=== PATIENT | female | born 1980 | race Caucasian/White ===

== ENCOUNTER → 2021-01-23 17:40 | Outpatient (CLI) | payer OTHER, SELFPAY ==
[2021-01-23 20:51] LABS: Urine N gonorrhoeae NOT DETECTED
[2021-01-23 21:01] LABS: Urine Chlamydia NOT DETECTED
== END ==
PROVIDERS: Visit Provider Physician Assistant
DX: R30.0 Dysuria (principal)
CPT/HCPCS: 87086; 87491; 87591

== ENCOUNTER → 2022-01-15 15:21 | Outpatient (CLI) | payer OTHER, SELFPAY ==
--- NOTE | 2022-01-15 15:32 | DI.RAD.S_ITS ---
PROCEDURE: XR SHOULDER LT MIN 2V INDICATIONS: HYPERTONICITY, LIMITED RANGE OF MOTION TECHNIQUE: 3 views of the shoulder were acquired. COMPARISON: [facility], CR, XR SHOULDER RT MIN 2V, 01/15/2022, 15:32. FINDINGS: Bones: No fractures or dislocations. No suspicious bony lesions. Visualized ribs appear intact. Mild joint narrowing with periarticular osteophyte formation of the acromioclavicular joint. Soft tissues: No suspicious soft tissue calcifications. IMPRESSION: Mild acromioclavicular joint degeneration. Dictated by: Red TARIQ Interpreted: Chas Shannon MD on 01/15/2022 at 16:15 Transcribed by: CHRISTA on 01/15/2022 at 16:15 Approved by: Chas Shannon M.D. on 01/15/2022 at 18:54
--- NOTE | 2022-01-15 15:32 | DI.RAD.S_ITS ---
PROCEDURE: XR SHOULDER RT MIN 2V INDICATIONS: HYPERTONICITY, LIMITED RANGE OF MOTION TECHNIQUE: 3 views of the shoulder were acquired. COMPARISON: None. FINDINGS: Bones: No fractures or dislocations. No suspicious bony lesions. Visualized ribs appear intact. Mild joint narrowing with periarticular osteophyte formation of the acromioclavicular joint. Soft tissues: No suspicious soft tissue calcifications. IMPRESSION: Mild acromioclavicular joint degeneration. Dictated by: Red HARRIS Interpreted: Chas Shannon MD on 01/15/2022 at 16:14 Transcribed by: CHRISTA on 01/15/2022 at 16:14 Approved by: Chas Shannon M.D. on 01/15/2022 at 18:53
--- NOTE | 2022-01-15 15:32 | DI.RAD.S_ITS ---
PROCEDURE: XR THORACIC SPINE 3V INDICATIONS: HYPERTONICITY, LIMITED RANGE OF MOTION TECHNIQUE: 3 views of the thoracic spine were acquired. COMPARISON: None. FINDINGS: Bones: No fractures or dislocations. No suspicious bony lesions. 12 pairs of ribs are noted, and appear intact where visualized. Soft tissues: No paravertebral stripe thickening. IMPRESSION: Unremarkable thoracic spine radiographs Approved by: Manohar Moser M.D. on 01/15/2022 at 16:36
== END ==
DX: M19.011 Primary osteoarthritis, right shoulder (principal); M19.012 Primary osteoarthritis, left shoulder; M62.89 Other specified disorders of muscle; M25.619 Stiffness of unspecified shoulder, not elsewhere classified
CPT/HCPCS: 72072; 73030

== ENCOUNTER → 2022-04-02 07:23 | Outpatient (CLI) | payer OTHER, SELFPAY ==
[2022-04-02 08:59] LABS: Add Manual Diff / Slide Review NO; Basophils Absolute Auto 0 /uL (0-100); Basophils Percent Auto 0.3 % (0-2); Eosinophils Absolute Auto 100 /uL (0-450); Eosinophils Percent Auto 1.5 % (2-4); Hematocrit 40.4 % (36-46); Lymphocytes Absolute Auto 2000 /uL (1100-4500); Lymphocytes Percent Auto 26.5 % (25-40); Mean Corpuscular HGB Conc 34.6 % (30-36); Mean Corpuscular Hemoglobin 30.7 PG (26-34); Mean Corpuscular Volume 88.7 fL (80-100); Monocytes Absolute Auto 700 /uL (0-900); Monocytes Percent Auto 8.6 % (3-14); Neutrophils Absolute Auto 4900 /uL (1500-7000); Neutrophils Percent Auto 63.1 % (50-75); Platelet Count 242 X10^3/uL (150-400); Red Blood Cell Count 4.56 X10^6/uL (4.0-5.2); Red Cell Distribution Width 13.7 % (11.6-14.8); White Blood Cell Count 7.7 X10^3/uL (4.5-11.0)
[2022-04-02 09:37] LABS: Alanine Aminotransferase 14 IU/L (<35); Albumin 3.9 g/dL (3.5-5.0); Albumin Globulin Ratio 1.3 (1.0-2.8); Alkaline Phosphatase 89 U/L (38-126); Aspartate Aminotransferase 18 IU/L (14-36); BUN Creatinine Ratio 16.2 (6-22); Bilirubin Total 0.5 mg/dL (0.2-1.3); Blood Urea Nitrogen 12 mg/dL (7-17); Calcium 8.8 mg/dL (8.4-10.2); Carbon Dioxide 23 mmol/L (22-32); Chloride 108 mmol/L (98-107); Cholesterol 198 mg/dL (140-199); Estimated Glomerular Filt Rate > 60 mL/min (>60); Glucose 101 mg/dL (70-100); HDL Cholesterol 33 mg/dL (40-60); HEMOLYSIS < 15 (0-50); LDL Cholesterol Calculated 135 mg/dL (<100); Potassium 4.1 mmol/L (3.4-5.1); Sodium 138 mmol/L (137-145); Total Protein 6.9 g/dL (6.3-8.2); Triglycerides 152 mg/dL (35-150)
[2022-04-02 10:05] LABS: TSH w/ Reflex to FT4 1.47 uIU/mL (0.47-4.68)
[2022-04-02 19:15] LABS: Creatinine Urine Random 81.3 mg/dL
[2022-04-02 19:33] LABS: Microalbumin Urine Random < 0.6 mg/dL (0-1.6)
== END ==
PROVIDERS: PCP Family Medicine; Referring Provider Family Medicine; Visit Provider Family Medicine
DX: E66.01 Morbid (severe) obesity due to excess calories (principal); L91.8 Other hypertrophic disorders of the skin; R03.0 Elevated blood-pressure reading, without diagnosis of hypertension; Z12.31 Encounter for screening mammogram for malignant neoplasm of breast
CPT/HCPCS: 36415; 80053; 80061; 82043; 82570; 84443; 85025

== ENCOUNTER → 2024-12-01 08:14 | Outpatient (CLI) | payer OTHER, SELFPAY ==
--- NOTE | 2024-12-01 08:15 | DI.MG.S_ITS ---
MM screening mammo BI: 12/01/2024. BI-RADS: 0 CLINICAL: 43-year old female for bilateral screening mammogram. Tyrer-Cuzick lifetime risk of 25.0%. No personal or first-degree family history of breast cancer. Current reported family history of breast cancer: maternal grandmother. PRIOR EXAMS: None. This is a baseline mammogram. MAMMOGRAPHY TECHNIQUE: 2D and 3D (tomosynthesis) digital mammographic views obtained, with additional images as needed for full coverage. Current study was also evaluated with a Computer Aided Detection (CAD) system. DENSITY C. The breasts are heterogeneously dense, which may obscure small masses. MAMMOGRAPHY FINDINGS Right: MLO only, Axilla: Calcifications needing additional imaging evaluation. Possible calcifications are seen in a right axillary lymph node. Left: Upper Outer Quadrant, Middle depth, measuring 0.8 cm: Focal asymmetry needing additional imaging evaluation. IMPRESSION: Right (Calcification): MLO only, Axilla * Incomplete - calcification needing additional imaging evaluation. Left (Asymmetry): Upper Outer Quadrant, Middle depth, measuring 0.8 cm * Incomplete - focal asymmetry needing additional imaging evaluation. RECOMMENDATIONS Right: MLO only, Axilla * Further evaluation with diagnostic mammography and diagnostic ultrasound. Ultrasound to be performed only if needed. Left: Upper Outer Quadrant, Middle depth * Further evaluation with diagnostic mammography and diagnostic ultrasound. Ultrasound to be performed only if needed. OVERALL ASSESSMENT CATEGORY BI-RADS-0: Incomplete - Need Additional Imaging Evaluation. ELECTRONICALLY SIGNED: Raeann Araujo M.D. on 12/01/2024 at 02:35:23 PM PT Interpreting Station ID: [id number]
== END ==
PROVIDERS: PCP Family Medicine; Referring Provider Family Medicine; Visit Provider Family Medicine
DX: Z12.31 Encounter for screening mammogram for malignant neoplasm of breast (principal); Z80.3 Family history of malignant neoplasm of breast; R92.333 Mammographic heterogeneous density, bilateral breasts
CPT/HCPCS: 77063; 77067

== ENCOUNTER → 2024-12-22 07:05 | Outpatient (CLI) | payer OTHER, SELFPAY ==
[2024-12-22 07:54] LABS: Add Manual Diff / Slide Review NO; Basophils Absolute Auto 0 /uL (0-100); Basophils Percent Auto 0.2 % (0-2); Eosinophils Absolute Auto 200 /uL (0-450); Eosinophils Percent Auto 2.7 % (2-4); Hematocrit 39.6 % (36-46); Hemoglobin 13.7 g/dL (12.0-16.0); Lymphocytes Absolute Auto 1900 /uL (1100-4500); Lymphocytes Percent Auto 27.1 % (25-40); Mean Corpuscular HGB Conc 34.6 % (30-36); Mean Corpuscular Hemoglobin 30.6 PG (26-34); Mean Corpuscular Volume 88.7 fL (80-100); Monocytes Absolute Auto 700 /uL (0-900); Monocytes Percent Auto 9.8 % (3-14); Neutrophils Absolute Auto 4300 /uL (1500-7000); Neutrophils Percent Auto 60.2 % (50-75); Platelet Count 222 X10^3/uL (150-400); Red Blood Cell Count 4.47 X10^6/uL (4.0-5.2); White Blood Cell Count 7.1 X10^3/uL (4.5-11.0)
[2024-12-22 08:00] LABS: Alanine Aminotransferase 18 IU/L (<35); Albumin 3.8 g/dL (3.5-5.0); Albumin Globulin Ratio 1.3 (1.0-2.8); Alkaline Phosphatase 90 U/L (38-126); Aspartate Aminotransferase 19 IU/L (14-36); BUN Creatinine Ratio 21.8 (6-22); Bilirubin Total 0.5 mg/dL (0.2-1.3); Blood Urea Nitrogen 17 mg/dL (7-17); Calcium 8.7 mg/dL (8.4-10.2); Carbon Dioxide 24 mmol/L (22-32); Chloride 108 mmol/L (98-107); Cholesterol 174 mg/dL (140-199); Estimated Glomerular Filt Rate > 60 mL/min (>60); Globulin 2.9 g/dL (1.7-4.1); Glucose 113 mg/dL (70-99); HDL Cholesterol 36 mg/dL (40-60); HEMOLYSIS < 15 (0-50); LDL Cholesterol Calculated 117 mg/dL (<100); Potassium 4.5 mmol/L (3.4-5.1); Sodium 139 mmol/L (137-145); Total Protein 6.7 g/dL (6.3-8.2); Triglycerides 107 mg/dL (35-150)
[2024-12-22 08:32] LABS: TSH w/ Reflex to FT4 1.48 uIU/mL (0.47-4.68)
== END ==
PROVIDERS: PCP Family Medicine; Referring Provider Family Medicine; Visit Provider Family Medicine
DX: E66.01 Morbid (severe) obesity due to excess calories (principal); E78.5 Hyperlipidemia, unspecified; R73.9 Hyperglycemia, unspecified; Z00.00 Encounter for general adult medical examination without abnormal findings
CPT/HCPCS: 36415; 80053; 80061; 83036; 84443; 85025

== ENCOUNTER → 2024-12-29 12:46 | Outpatient (CLI) | payer SELFPAY ==
--- NOTE | 2024-12-29 12:48 | DI.US.S_ITS ---
US axillary only rt: 12/29/2024. BI-RADS: 2 CLINICAL: 44-year old female for right diagnostic breast ultrasound that is a recall from screening on 12/01/2024. Tyrer-Cuzick lifetime risk of 24.9%. No personal or first-degree family history of breast cancer. Current reported family history of breast cancer: maternal grandmother. PRIOR EXAMS Mammogram(s): 12/01/2024. ULTRASOUND TECHNIQUE Real-time myers scale and color doppler imaging of the area of clinical interest was performed with image documentation. Exam is limited to the right axilla. ULTRASOUND FINDINGS Right: Axillary Tail, measuring 3 x 1.2 x 2.5 cm. Previous report: MLO only, Axilla: There is a normal-appearing lymph node present. Normal morphology and vascularity. IMPRESSION: Right * No evidence of malignancy with benign findings. RECOMMENDATIONS Bilateral * According to the Tyrer-Cuzick Risk Assessment Model, based on the information provided your patient has a greater than 20% lifetime risk for developing breast cancer. Consider supplemental screening with breast MRI and participation in a high risk screening program. * Annual screening mammography. COMMENTS: Findings and recommendations were conveyed to the patient during today's evaluation. OVERALL ASSESSMENT CATEGORY BI-RADS-2: Benign. ELECTRONICALLY SIGNED: Nicole Babcock M.D. on 12/29/2024 at 07:02:42 PM PT Interpreting Station ID: [id number]
--- NOTE | 2024-12-29 12:48 | DI.US.S_ITS ---
MM diagnostic mammo BI, US breast LT limited: 12/29/2024 BI-RADS: 3 CLINICAL: 44-year old female for bilateral diagnostic mammogram and left diagnostic breast ultrasound that is a recall from screening on 12/01/2024. Tyrer-Cuzick lifetime risk of 24.9%. No personal or first-degree family history of breast cancer. Current reported family history of breast cancer: maternal grandmother. PRIOR EXAMS Mammogram(s): 12/01/2024. MAMMOGRAPHY TECHNIQUE: 2D and 3D (tomosynthesis) digital mammographic views obtained, with additional images as needed for full coverage. Current study was also evaluated with a Computer Aided Detection (CAD) system. ULTRASOUND TECHNIQUE Real-time myers scale and color doppler imaging of the area of clinical interest was performed with image documentation. TARGETED Left Breast Ultrasound: Real-time ultrasound exam was performed focused to area of clinical and/or imaging concern. DENSITY C. The breasts are heterogeneously dense, which may obscure small masses. MAMMOGRAPHY FINDINGS Right: MLO only, Axilla: There are benign dystrophic calcifications. Calcifications are on the cortex of an otherwise normal appearing lymph node. Left: Upper Outer Quadrant, Middle depth: This finding persists with additional views. It is equal density, and circumscribed with smooth margins. ULTRASOUND FINDINGS Left: Outer Central, 3.0 cm from nipple, measuring 0.7 x 0.4 x 1.1 cm. Previous report: Upper Outer Quadrant: There is an indistinct complex mass showing combined posterior acoustic features consisting of clustered microcysts. Doppler shows no vascularity. IMPRESSION: Left (Complex Cyst): Outer Central, 3.0 cm from nipple, measuring 0.7 x 0.4 x 1.1 cm. Previous report: Upper Outer Quadrant * Probably Benign. RECOMMENDATIONS Right: MLO only, Axilla * Further evaluation with diagnostic ultrasound to be performed today (Reported separately). Left: Outer Central, 3.0 cm from nipple * Six month followup with diagnostic mammography and diagnostic ultrasound. COMMENTS: Findings and recommendations were conveyed to the patient during today's evaluation. OVERALL ASSESSMENT CATEGORY BI-RADS-3: Probably Benign. ELECTRONICALLY SIGNED: Nicole Babcock M.D. on 12/29/2024 at 07:01:20 PM PT Interpreting Station ID: [id number]
== END ==
PROVIDERS: PCP Family Medicine; Referring Provider Family Medicine; Visit Provider Family Medicine
DX: R92.1 Mammographic calcification found on diagnostic imaging of breast (principal); N60.01 Solitary cyst of right breast; R92.333 Mammographic heterogeneous density, bilateral breasts; Z80.3 Family history of malignant neoplasm of breast
CPT/HCPCS: 76642; 76882; 77066; G0279

== ENCOUNTER → 2025-03-29 07:35 | Outpatient (CLI) | payer OTHER, SELFPAY ==
[2025-03-29 09:11] LABS: Vitamin D 25 Hydroxy (D3) 34.8 ng/mL (30.0-100.0)
[2025-03-29 09:13] LABS: Follicle Stimulating Hormone 3.09 mIU/mL
[2025-03-29 09:26] LABS: Cortisol AM (Before 10AM) 12.1 ug/dL (4.46-22.7)
[2025-03-29 09:46] LABS: Vitamin B12 566 pg/mL (239-931)
[2025-03-31 13:11] LABS: Lead, Blood < 1.0 ug/dL (0.0-3.4); Mercury, Blood < 1.0 ug/L (0.0-14.9)
[2025-04-08 12:18] LABS: Progesterone, Serum <10
[2025-04-12 06:06] LABS: % Free Progesterone 2.6 % (.); Free Progesterone <0.26 ng/dL (.)
== END ==
PROVIDERS: PCP Family Medicine; Referring Provider Family Medicine; Visit Provider Family Medicine
DX: F90.2 Attention-deficit hyperactivity disorder, combined type (principal); R73.9 Hyperglycemia, unspecified; E78.2 Mixed hyperlipidemia; N95.1 Menopausal and female climacteric states
CPT/HCPCS: 36415; 82175; 82306; 82533; 82607; 82672; 83001; 83002; 83655; 83825; 84144; 84999

== ENCOUNTER 2025-05-20 17:43 | Emergency (ER) | payer OTHER, SELFPAY ==
[2025-05-20 17:50] VITALS: BP 167/88; PULSE 85; RESP 16; TEMP 37.5; O2SAT 100; BMI 48.6
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
== END 2025-05-20 22:33 | disposition left against medical advice (07) ==
PROVIDERS: Emergency Provider Emergency Medicine; PCP Family Medicine
DX: S49.91XA Unspecified injury of right shoulder and upper arm, initial encounter (principal); V89.2XXA Person injured in unspecified motor-vehicle accident, traffic, initial encounter
CPT/HCPCS: 73030; 99281

== ENCOUNTER → 2025-08-03 08:47 | Outpatient (CLI) | payer OTHER, SELFPAY ==
--- NOTE | 2025-08-03 08:48 | DI.US.S_ITS ---
US breast LT limited, MM diagnostic mammo unilat LT: 08/03/2025 BI-RADS: 4 CLINICAL: 44-year old female for left diagnostic mammogram and left diagnostic breast ultrasound. The patient presents for short interval follow-up. Tyrer-Cuzick lifetime risk of 24.9%. No personal or first-degree family history of breast cancer. Current reported family history of breast cancer: maternal grandmother. PRIOR EXAMS Mammogram(s): 12/29/2024, 12/01/2024. Breast Ultrasound(s): 12/29/2024. MAMMOGRAPHY TECHNIQUE: 2D and 3D (tomosynthesis) digital mammographic views obtained, with additional images as needed for full coverage. Current study was also evaluated with a Computer Aided Detection (CAD) system. ULTRASOUND TECHNIQUE Real-time myers scale and color doppler imaging of the area of clinical interest was performed with image documentation. TARGETED Left Breast Ultrasound: Real-time ultrasound exam was performed focused to area of clinical and/or imaging concern. DENSITY Left: C. The breast is heterogeneously dense, which may obscure small masses. MAMMOGRAPHY FINDINGS Left: Upper Outer at 2:00, Posterior depth, measuring 2.5cm: There are new suspicious fine pleomorphic calcifications in linear distribution. Left (finding-1): Upper Outer Quadrant, Middle depth: Correlating with prior imaging concern, there is a stable focal asymmetry present. ULTRASOUND FINDINGS Left: Outer at 3:00, 4 cm from nipple, measuring 1 x 0.4 x 1.2 cm: There is a complicated cyst present. Doppler shows no vascularity. This is an incidental finding. Left: Outer at 3:00, 4 cm from nipple, measuring 0.5 x 0.2 x 0.5 cm: There are clustered microcysts. Doppler shows no vascularity. This is an incidental finding. Left (finding-1): Outer at 3:00, 8 cm from nipple: There is no sonographic abnormality to account for imaging concern on mammography. Left: Outer at 3:00, 5 cm from nipple, measuring 0.8 x 0.4 x 0.6 cm: Correlating with prior imaging concern, there is benign fat and fibroglandular tissue. IMPRESSION: Left (Calcification): Upper Outer at 2:00, Posterior depth, measuring 2.5cm * Suspicious findings with likelihood of malignancy. Left (Complicated Cyst): Outer at 3:00, 4 cm from nipple, measuring 1 x 0.4 x 1.2 cm * Probably Benign. Left (Asymmetry): Upper Outer Quadrant, Middle depth * Probably Benign. RECOMMENDATIONS Left: Upper Outer Quadrant, Middle depth * Six month followup with diagnostic mammography. When the patient returns for short-term unilateral followup, a mammogram for the contralateral breast will also be due. Left: Outer at 3:00, 4 cm from nipple * Six month followup with diagnostic ultrasound. Left: Upper Outer at 2:00, Posterior depth * Stereotactic-guided biopsy for further evaluation. COMMENTS: Findings and recommendations regarding the biopsy were conveyed to the patient during today's evaluation by Dr. Araujo. OVERALL ASSESSMENT CATEGORY BI-RADS-4: Suspicious. ELECTRONICALLY SIGNED: Raeann Araujo M.D. on 08/03/2025 at 12:14:15 PM PT Interpreting Station ID: [id number]
== END ==
LOC: MAMMO 08:47
PROVIDERS: PCP Family Medicine; Referring Provider Family Medicine; Visit Provider Family Medicine
DX: R92.8 Other abnormal and inconclusive findings on diagnostic imaging of breast (principal); R92.1 Mammographic calcification found on diagnostic imaging of breast; R92.332 Mammographic heterogeneous density, left breast; N60.02 Solitary cyst of left breast; Z80.3 Family history of malignant neoplasm of breast
CPT/HCPCS: 76642; 77065; G0279